=== PATIENT | female | born 1940 ===

== ENCOUNTER 2019-09-04 01:00 | Outpatient (RCR) | payer MEDICARE, SELFPAY ==
[2019-09-04 12:52] VITALS: BMI 31.6
[2019-09-04 12:53] VITALS: BMI 31.6
== END 2019-10-21 23:59 | disposition home or self-care (01) ==
LOC: ANHDMC 01:00
PROVIDERS: PCP Family Medicine; Visit Provider Internal Medicine Endocrinology, Diabetes & Metabolism
DX: E11.9 Type 2 diabetes mellitus without complications (principal); Z71.89 Other specified counseling; Z71.3 Dietary counseling and surveillance
CPT/HCPCS: 97802; G0108

== ENCOUNTER 2019-12-04 12:54 | Outpatient (RCR) | payer MEDICARE, SELFPAY ==
[2019-12-04 13:07] VITALS: BMI 31.3
== END 2020-03-03 23:59 | disposition home or self-care (01) ==
LOC: ANHDMC 12:54
PROVIDERS: Visit Provider Internal Medicine Endocrinology, Diabetes & Metabolism
DX: E11.9 Type 2 diabetes mellitus without complications (principal); Z71.3 Dietary counseling and surveillance; Z68.31 Body mass index [BMI] 31.0-31.9, adult
CPT/HCPCS: 97802